=== PATIENT | female | born 1960 | race Caucasian/White ===

== ENCOUNTER 2021-02-16 19:13 | Observation (INO) ==
[2021-02-16 19:48] LABS: Basophils # 0.1 K/mcL (0.0-0.2); Basophils % 0.9 %; Eosinophils # 0.3 K/mcL (0.0-0.6); Hematocrit 36.9 % (35.3-44.9); Hemoglobin 12.4 g/dL (11.5-15.4); Immature Granulocytes % 0.5 % (0-4); Lymphocytes # 3.2 K/mcL (0.6-4.6); Lymphocytes % 41.5 %; Mean Corpuscular HGB Conc 33.6 g/dL (31.6-35.5); Mean Corpuscular Hemoglobin 30.5 pg (28.0-33.3); Mean Corpuscular Volume 90.7 fL (83.0-100.0); Mean Platelet Volume 10.8 fL (9.4-12.4); Monocytes # 0.8 K/mcL (0.0-1.3); Monocytes % 9.8 %; Neutrophils # 3.3 K/mcL (1.6-8.9); Platelet Count 252 K/mcL (140-400); Red Blood Count 4.07 M/mcL (3.82-4.97); Red Cell Distribution Width 11.9 % (11.5-14.5); Segmented Neutrophils % 43.3 %; White Blood Count 7.7 K/mcL (4.3-11.1)
[2021-02-16] MEDS ORDERED: Aspirin 81 MG TAB.CHEW PO ONE (19:48)
[2021-02-16 20:10] LABS: BUN/Creatinine Ratio 19 (6-26); Blood Urea Nitrogen 16 mg/dL (8-23); Calcium 9.7 mg/dL (8.6-10.3); Carbon Dioxide 25 mEq/L (23-29); Chloride 101 mEq/L (98-107); Glucose 109 mg/dL (70-105); Osmolality,Calculated 284 (280-300); Potassium 3.9 mEq/L (3.5-5.1); Sodium 136 mEq/L (136-145); eGFR For African Americans > 60 (> 60); eGFR For Non-African Americans > 60 (> 60)
[2021-02-16 20:11] LABS: Troponin I < 0.03 ng/mL (< 0.04)
[2021-02-16] MEDS ORDERED: 0.9 % Sodium Chloride 1,000 ML ONE (22:05)
[2021-02-16] MEDS: Nitroglycerin 0.4 MG TAB.SUBL SL SCH ×2 (22:09→22:48)
[2021-02-16] MEDS ORDERED: 0.9 % Sodium Chloride 1,000 ML IVC ONE (22:10)
[2021-02-16] MEDS ORDERED: Ondansetron 4 MG/2 ML VIAL IVP PRN (22:18)
[2021-02-16] MEDS ORDERED: Naloxone 0.4 MG/ML INJ IVP PRN (22:18)
[2021-02-16] MEDS ORDERED: Melatonin 3 MG TABLET PO PRN (22:18)
[2021-02-16] MEDS ORDERED: Acetaminophen 325 MG TABLET PO PRN (22:18)
[2021-02-16] MEDS ORDERED: Dextrose Gel 15 GM/37.5 ML TUBE PO PRN ×2 (22:22)
[2021-02-16] MEDS ORDERED: D5% in Water 1,000 ML IVC PRN (22:22)
[2021-02-16] MEDS ORDERED: *HR* Dextrose 50 % in Water (Vial) 50 ML VIAL IVP PRN (22:22)
[2021-02-16] MEDS: Insulin LISPRO 300 UNITS/3 ML VIAL SUBQ SCH (22:57)
[2021-02-17] MEDS: rOPINIRole 1 MG TABLET PO SCH ×2 (01:36→21:02)
[2021-02-17 02:59] LABS: Basophils # 0.1 K/mcL (0.0-0.2); Basophils % 0.9 %; Eosinophils # 0.3 K/mcL (0.0-0.6); Hematocrit 36.3 % (35.3-44.9); Hemoglobin 12.1 g/dL (11.5-15.4); Immature Granulocytes % 0.5 % (0-4); Lymphocytes # 2.7 K/mcL (0.6-4.6); Lymphocytes % 42.9 %; Mean Corpuscular HGB Conc 33.3 g/dL (31.6-35.5); Mean Corpuscular Hemoglobin 30.4 pg (28.0-33.3); Mean Corpuscular Volume 91.2 fL (83.0-100.0); Monocytes # 0.6 K/mcL (0.0-1.3); Monocytes % 8.6 %; Neutrophils # 2.7 K/mcL (1.6-8.9); Platelet Count 213 K/mcL (140-400); Red Blood Count 3.98 M/mcL (3.82-4.97); Segmented Neutrophils % 42.1 %; White Blood Count 6.4 K/mcL (4.3-11.1)
[2021-02-17 03:17] LABS: BUN/Creatinine Ratio 18 (6-26); Blood Urea Nitrogen 17 mg/dL (8-23); Calcium 9.2 mg/dL (8.6-10.3); Carbon Dioxide 30 mEq/L (23-29); Chloride 105 mEq/L (98-107); Chol/HDL Ratio 6.8 (0-4.9); Cholesterol 301 mg/dL (< 200); Glucose 189 mg/dL (70-105); HDL Cholesterol 44 mg/dL (40-59); LDL Cholesterol,Calculated 206 mg/dL (< 100); Magnesium 1.8 mg/dL (1.6-2.6); Osmolality,Calculated 301 (280-300); Potassium 3.3 mEq/L (3.5-5.1); Sodium 142 mEq/L (136-145); Triglycerides 256 mg/dL (< 150); eGFR For African Americans > 60 (> 60); eGFR For Non-African Americans > 60 (> 60)
[2021-02-17] MEDS: Insulin LISPRO 300 UNITS/3 ML VIAL SUBQ SCH ×3 (05:12→17:22)
[2021-02-17] MEDS: Aspirin Enteric Coated 81 MG Tablet PO SCH (08:48)
[2021-02-17] MEDS ORDERED: Nitroglycerin 0.4 MG TAB.SUBL SL PRN (10:30)
[2021-02-17] MEDS: FLUoxetine 20 MG CAPSULE PO SCH (10:37)
[2021-02-17 14:40] LABS: Estimated Average Glucose 171 mg/dl; Hemoglobin A1C 7.6 %
[2021-02-17] MEDS: *HR* Heparin 5,000 UNIT/ML VIAL SQ SCH ×2 (15:08→21:02)
[2021-02-17] MEDS ORDERED: NON-FORMULARY MEDICATION 1 EACH EACH (Ropinirole Hcl [Requip] 4 MG Tablet) PO SCH (21:00)
[2021-02-18] MEDS: Insulin LISPRO 300 UNITS/3 ML VIAL SUBQ SCH ×5 (01:36→23:11)
[2021-02-18 03:18] LABS: BUN/Creatinine Ratio 15 (6-26); Blood Urea Nitrogen 15 mg/dL (8-23); Calcium 9.5 mg/dL (8.6-10.3); Carbon Dioxide 30 mEq/L (23-29); Chloride 102 mEq/L (98-107); Glucose 159 mg/dL (70-105); Magnesium 1.9 mg/dL (1.6-2.6); Osmolality,Calculated 292 (280-300); Phosphorous 3.5 mg/dL (2.7-4.5); Potassium 3.7 mEq/L (3.5-5.1); Sodium 139 mEq/L (136-145); eGFR For African Americans > 60 (> 60); eGFR For Non-African Americans 54 (> 60)
[2021-02-18] MEDS: *HR* Heparin 5,000 UNIT/ML VIAL SQ SCH ×3 (05:12→20:31)
[2021-02-18] MEDS ORDERED: FLUoxetine 20 MG CAPSULE PO SCH (09:00)
[2021-02-18 09:20] LABS: Hematocrit 36.5 % (35.3-44.9); Hemoglobin 11.9 g/dL (11.5-15.4); Mean Corpuscular HGB Conc 32.6 g/dL (31.6-35.5); Mean Corpuscular Hemoglobin 29.8 pg (28.0-33.3); Mean Corpuscular Volume 91.5 fL (83.0-100.0); Mean Platelet Volume 10.8 fL (9.4-12.4); Platelet Count 229 K/mcL (140-400); Red Blood Count 3.99 M/mcL (3.82-4.97); Red Cell Distribution Width 11.9 % (11.5-14.5)
[2021-02-18] MEDS: allopurinoL 100 MG TABLET PO SCH (09:47)
[2021-02-18] MEDS: Isosorbide MONOnitrate (24 HR) 30 MG TAB.ER.24H PO SCH (09:47)
[2021-02-18] MEDS: FLUoxetine 20 MG CAPSULE PO SCH (09:47)
[2021-02-18] MEDS: Aspirin Enteric Coated 81 MG Tablet PO SCH (09:47)
[2021-02-18] MEDS: Levothyroxine 25 MCG TABLET PO SCH (09:48)
[2021-02-18] MEDS: amLODIPine 5 MG TABLET PO SCH (09:48)
[2021-02-18] MEDS: Metoprolol XL (24 HR) Succ 25 MG TAB.ER.24H PO SCH (09:48)
[2021-02-18] MEDS ORDERED: Perflutren Lipid Microsphere 1.3 ML in 0.9 % Sodium Chloride 8.7 ML IVP PRN (15:33)
[2021-02-18] MEDS: rOPINIRole 1 MG TABLET PO SCH (20:26)
[2021-02-19] MEDS: *HR* Heparin 5,000 UNIT/ML VIAL SQ SCH ×3 (04:38→20:07)
[2021-02-19] MEDS: Insulin LISPRO 300 UNITS/3 ML VIAL SUBQ SCH ×3 (04:38→17:28)
[2021-02-19] MEDS: Metoprolol XL (24 HR) Succ 25 MG TAB.ER.24H PO SCH (07:41)
[2021-02-19] MEDS: allopurinoL 100 MG TABLET PO SCH (07:41)
[2021-02-19] MEDS: amLODIPine 5 MG TABLET PO SCH (07:41)
[2021-02-19] MEDS: Levothyroxine 25 MCG TABLET PO SCH (07:41)
[2021-02-19] MEDS: Isosorbide MONOnitrate (24 HR) 30 MG TAB.ER.24H PO SCH (07:41)
[2021-02-19] MEDS: Aspirin Enteric Coated 81 MG Tablet PO SCH (07:41)
[2021-02-19] MEDS: FLUoxetine 20 MG CAPSULE PO SCH (07:42)
[2021-02-19] MEDS ORDERED: Heparin 1,000 UNITS/500 mL 500 ML ONE (14:44)
[2021-02-19] MEDS ORDERED: *HR* Heparin 10,000 UNIT/10 ML VIAL ONE (14:44)
[2021-02-19] MEDS ORDERED: ISOVUE-370 200 ML INFUS..BTL ONE (14:45)
[2021-02-19] MEDS ORDERED: Nitroglycerin 1,000 MCG/5 ML VIAL IV ONE (14:45)
[2021-02-19] MEDS ORDERED: 0.9 % Sodium Chloride 2,000 ML ONE (14:45)
[2021-02-19] MEDS ORDERED: *HR* Midazolam HCl 2 MG/2 ML VIAL ONE (15:28)
[2021-02-19] MEDS ORDERED: *HR* FentaNYL (PF) 100 MCG/2 ML VIAL ONE (15:29)
[2021-02-19] MEDS ORDERED: *HR* Atropine Sulfate 1 MG/10 ML SYRINGE ONE (15:50)
[2021-02-19] MEDS: rOPINIRole 1 MG TABLET PO SCH (20:07)
[2021-02-20] MEDS: *HR* Heparin 5,000 UNIT/ML VIAL SQ SCH (04:52)
[2021-02-20] MEDS ORDERED: Insulin LISPRO 300 UNITS/3 ML VIAL SUBQ SCH (07:30)
[2021-02-20] MEDS: allopurinoL 100 MG TABLET PO SCH (08:15)
[2021-02-20] MEDS: Metoprolol XL (24 HR) Succ 25 MG TAB.ER.24H PO SCH (08:15)
[2021-02-20] MEDS: amLODIPine 5 MG TABLET PO SCH (08:15)
[2021-02-20] MEDS: Aspirin Enteric Coated 81 MG Tablet PO SCH (08:15)
[2021-02-20] MEDS: Levothyroxine 25 MCG TABLET PO SCH (08:15)
[2021-02-20] MEDS: FLUoxetine 20 MG CAPSULE PO SCH (08:15)
[2021-02-20] MEDS: Isosorbide MONOnitrate (24 HR) 30 MG TAB.ER.24H PO SCH (08:15)
[2021-02-20 09:11] VITALS: BP 132/80
== END 2021-02-20 09:50 | disposition home or self-care (01) ==
LOC: EMEROOARM 19:13 → 3BNU 19:13 → SUATTDRO 21:54 → 3BNU 22:34
PROVIDERS: ADMIT Internal Medicine; ATTEND Internal Medicine